=== PATIENT | male | born 1985 | race Two or more races ===

== ENCOUNTER 2021-07-14 17:47 | Emergency (ER) | payer MEDICAID ==
[~2021-07-14] VITALS: Ht 177.8 cm; Wt 82.0 kg
[2021-07-14] MEDS ORDERED: CEFTRIAXONE SODIUM 500 MG/VIAL IM ONE (18:30)
[2021-07-14] MEDS ORDERED: AZITHROMYCIN 500 MG TABLET PO ONE (18:30)
[2021-07-14 18:51] LABS: CLARITY URINE CLEAR (CLEAR); COLOR URINE YELLOW (YELLOW); KETONES URINE NEGATIVE (NEGATIVE); LEUKOCYTE ESTERASE URINE NEGATIVE (NEGATIVE); NITRITE URINE NEGATIVE (NEGATIVE); OCCULT BLOOD URINE TRACE (NEGATIVE); PH URINE 5.5 (4.5-8.0); PROTEIN URINE NEGATIVE (NEGATIVE); SPECIFIC GRAVITY URINE 1.012 (1.005-1.030); UROBILINOGEN URINE 0.2 E.U./dL (0.2-1.0)
[2021-07-14 19:56] VITALS: BP 122/84
[2021-07-14] MEDS ORDERED: ALBU18HF2 IH (20:03)
[2021-07-16 19:09] LABS: NEISSERIA GONORRHOEAE NAA Negative (Negative)
== END 2021-07-14 20:06 | disposition home or self-care (01) ==
LOC: ER 17:47
DX: N34.2 Other urethritis (principal)
CPT/HCPCS: 81003; 87491; 87591; 96372; 99283; J0696